=== PATIENT | female | born 1995 | race Caucasian/White ===

== ENCOUNTER 2018-06-21 09:25 | Emergency (ER) | payer MEDICAID ==
[~2018-06-21] VITALS: Ht 188 cm; Wt 65.0 kg
[2018-06-21 10:06] LABS: BASOPHILS % 0.4 % (0.0-2.0); EOSINOPHILS % 0.8 % (0.0-5.0); HEMATOCRIT. 42.4 % (36.0-48.0); HEMOGLOBIN. 14.7 g/dL (12.0-16.0); LYMPHOCYTES % 23.8 % (20.0-50.0); MEAN CORPUSCULAR HEMOGLOBIN 29.8 pg (28.0-32.0); MEAN CORPUSCULAR VOLUME 86.1 fL (81.0-99.0); MEAN PLATELET VOLUME 8.7 fl (7.4-10.4); MONOCYTES % 6.1 % (2.0-8.0); NEUTROPHILS % 68.9 % (40.0-76.0); PLATELET 274 x1000/uL (130-400); RED BLOOD CELL COUNT 4.92 mill/uL (4.2-5.4); RED CELL DISTRIBUTION WIDTH 14.9 % (11.6-14.6)
[2018-06-21 10:16] LABS: CHLORIDE 101 mEq/L (98-107)
[2018-06-21 10:25] LABS: HCG SCREEN NEGATIVE
[2018-06-21] MEDS ORDERED: ACETAMINOPHEN 500MG TABLET PO ONE (10:30)
[2018-06-21] MEDS ORDERED: ONDANSETRON HCL 4MG/2ML INJ IV STA (10:32)
[2018-06-21] MEDS ORDERED: MORPHINE SULFATE 4 MG/ML CPJ (NOT FOR IM USE) IV STA (10:32)
[2018-06-21 12:05] VITALS: BP 114/59
[2018-06-21] MEDS ORDERED: IOHEXOL-350 100 ML BOTTLE ONE (12:52)
== END 2018-06-21 13:54 | disposition home or self-care (01) ==
LOC: ER 09:25
DX: R07.89 Other chest pain (principal); F17.200 Nicotine dependence, unspecified, uncomplicated; F12.10 Cannabis abuse, uncomplicated; F14.10 Cocaine abuse, uncomplicated; Z98.890 Other specified postprocedural states
CPT/HCPCS: 36415; 71045; 71275; 74174; 80053; 81025; 83880; 84484; 84703; 85025; 93005; 96374; 96375; 99285; J2270; J2405; Q9967